=== PATIENT | female | born 1985 | race Caucasian/White ===

== ENCOUNTER 2018-11-15 10:18 | Emergency (ER) | payer OTHER ==
[2018-11-15] MEDS: LIDOCAINE 1% (MPF) 5 ML VIAL INJ (11:22)
[2018-11-15] MEDS: DIPHTH/TET/ACEL PERTUSS (ADULT) 0.5 ML VIAL IM* (11:24)
== END 2018-11-15 12:20 | disposition home or self-care (01) ==
LOC: FTE 10:18
DX: S61.214A Laceration without foreign body of right ring finger without damage to nail, initial encounter (principal); W25.XXXA Contact with sharp glass, initial encounter; Y92.9 Unspecified place or not applicable; Z23 Encounter for immunization
CPT/HCPCS: 12001; 90471; 90715; 99283-25